=== PATIENT | female | born 1950 | race Caucasian/White ===

== ENCOUNTER → 2018-08-03 | Outpatient (CLI) | payer OTHER | END | disposition home or self-care (01) | LOC: CFH 10:09 | PROVIDERS: ATTEND Nurse Practitioner Family | DX: Z12.31 Encounter for screening mammogram for malignant neoplasm of breast (principal); Z78.9 Other specified health status | CPT/HCPCS: 77067 ==

== ENCOUNTER → 2018-09-27 | Outpatient (CLI) | payer OTHER | END | disposition home or self-care (01) | LOC: CFH 14:22 | PROVIDERS: ATTEND Nurse Practitioner Family | DX: N63.20 Unspecified lump in the left breast, unspecified quadrant (principal) | CPT/HCPCS: 77065 ==

== ENCOUNTER 2020-04-28 11:35 | Emergency (ER) | payer MEDICARE, OTHER ==
[~2020-04-28] VITALS: Ht 167.6 cm; Wt 66.0 kg
[2020-04-28 11:36] VITALS: BP 157/69
--- NOTE | 2020-04-28 11:47 | NUR ---
PATIENT ARRIVES STATING EYE DOCTOR SAID SHE HAS A BLEED BEHIND LEFT EYE JO[facility] ANGEL PELAYO. THE CARD SHE BRINGS FROM [facility] SAYS PLEASE R/O GLACOMA. PATIENT STATES SHE LOST VISION LEFT A YEAR AND A HALF AGO AND THEN IT CAME BACK AFTER A LOT OF STERIODS. PATIENT REPORTS PAIN IN LEFT EYE.
[2020-04-28] MEDS ORDERED: METO1TAB18 PO (11:57)
[2020-04-28] MEDS ORDERED: DULO20CA45 PO (11:57)
[2020-04-28] MEDS ORDERED: HYDR-3237 PO (11:57)
[2020-04-28] MEDS ORDERED: AMIT100T PO (11:57)
[2020-04-28] MEDS ORDERED: PREG200C PO (11:57)
[2020-04-28 12:25] LABS: BASOPHILS # (AUTO) 0.03 x10^3/uL (0-0.1); BASOPHILS % (AUTO) 1 % (0-1); EOSINOPHILS # (AUTO) 0.08 x10^3/uL (0-0.4); EOSINOPHILS % (AUTO) 1 % (1-7); LYMPHOCYTES # (AUTO) 1.43 x10^3/uL (1-3.4); LYMPHOCYTES % (AUTO) 23 % (22-44); MD NO; MEAN CORPUSCULAR HEMOGLOBIN 31.5 pg (27.0-34.8); MEAN CORPUSCULAR HGB CONC 32.8 g/dL (32.4-35.8); MEAN CORPUSCULAR VOLUME 95.9 fL (80-100); MEAN PLATELET VOLUME 9.5 fL (7.4-10.4); MONOCYTES # (AUTO) 0.64 x10^3/uL (0.2-0.8); MONOCYTES % (AUTO) 11 % (2-9); NEUTROPHILS # (AUTO) 3.95 x10^3/uL (1.8-6.8); NEUTROPHILS % (AUTO) 65 % (42-75); PLATELET COUNT 226 x10^3/uL (130-400); RED BLOOD COUNT 5.28 x10^6/uL (3.82-5.3)
[2020-04-28 12:30] LABS: INTERNATIONAL NORMALIZED RATIO 0.93 (0.93-1.1); PROTHROMBIN TIME 9.9 Seconds (9.6-11.5)
[2020-04-28 12:35] LABS: ALBUMIN 3.4 g/dL (3.4-5.0); ANION GAP 8 mmol/L (5-15); C-REACTIVE PROTEIN, QUANT 0.14 mg/dL (0.02-0.49); CALCIUM 9.3 mg/dL (8.5-10.1); CHLORIDE 107 mmol/L (98-107); CREATININE 0.93 mg/dL (0.55-1.02)
[2020-04-28 12:47] LABS: HCT (SEDRATE) 50.7 % (34.6-47.8)
--- NOTE | 2020-04-28 13:43 | NUR ---
to consult with юлия roman
--- NOTE | 2020-04-28 14:29 | NUR ---
got patient a warm blanket, and she is on monitor, gowned and rails up. she is weak.
== END 2020-04-28 14:50 | disposition home or self-care (01) ==
LOC: ED 12:15
DX: H57.12 Ocular pain, left eye (principal)
CPT/HCPCS: 36415; 80048; 82040; 85025; 85610; 85651; 85730; 86140; 99283

== ENCOUNTER → 2020-07-11 | Outpatient (CLI) | payer MEDICARE ==
[~2020-07-11] MED LIST: AMIT100T PO; DULO20CA45 PO; HYDR-3237 PO; METO1TAB18 PO; PREG200C PO
== END | disposition home or self-care (01) ==
LOC: RAD 08:44
PROVIDERS: ATTEND Internal Medicine
DX: R13.10 Dysphagia, unspecified (principal)
CPT/HCPCS: 74220